=== PATIENT | female | born 1980 | race Caucasian/White ===

== ENCOUNTER 2022-03-30 10:00 | Outpatient (CLI) | payer OTHER, SELFPAY ==
[2022-03-31 16:08] LABS: H pylori Ag Stool* Negative (Negative)
== END 2022-03-30 10:01 | disposition home or self-care (01) ==
PROVIDERS: PCP Emergency Medicine; Visit Provider Emergency Medicine
DX: R10.9 Unspecified abdominal pain (principal)
CPT/HCPCS: 87338

== ENCOUNTER 2022-03-31 07:07 | Outpatient (CLI) | payer OTHER, SELFPAY ==
--- NOTE | 2022-03-31 07:15 | CRLHL7_ITS ---
For Patients: As a result of the Century Cures Act, medical imaging exams and procedure reports are released immediately into your electronic medical record. You may view this report before your referring provider. If you have questions, please contact your health care provider. INDICATION: POST PRANDIAL PAIN COMPARISON: none TECHNIQUE: Real time sharp scale imaging and color Doppler analysis was performed of the right upper quadrant. FINDINGS: The patient`s liver is of normal size and has uniform echogenicity. There is a normal appearance of the hepatic IVC and proximal abdominal aorta. There is no evidence of ascites. A large shadowing stone is present within the gallbladder lumen measuring 3.6 x 1.6 x 2.7 cm. The gallbladder wall measures 4 mm in thickness. The common bile duct is of normal size and measures 5.5 mm in diameter at the level of the jordin hepatis. The pancreas appears normal. There is no evidence of a stone or hydronephrosis within the right kidney. The right kidney measures 11.7 cm in length. IMPRESSION: Large gallstone in the gallbladder lumen measuring 3.6 cm with mild gallbladder wall thickening compatible with cholelithiasis. Surgical consultation should be considered. Dictated by Kevin Perez MD @ 03/31/2022 8:39:47 AM (Electronically Signed)
== END 2022-03-31 07:08 | disposition home or self-care (01) ==
PROVIDERS: PCP Emergency Medicine; Visit Provider Emergency Medicine
DX: R10.9 Unspecified abdominal pain (principal); K80.80 Other cholelithiasis without obstruction
CPT/HCPCS: 76705

== ENCOUNTER 2022-04-07 09:02 | Outpatient (CLI) | payer OTHER, SELFPAY ==
--- NOTE | 2022-04-07 09:15 | CRLHL7_ITS ---
For Patients: As a result of the Century Cures Act, medical imaging exams and procedure reports are released immediately into your electronic medical record. You may view this report before your referring provider. If you have questions, please contact your health care provider. BILATERAL MAMMOGRAM WITH COMPUTER-AIDED DETECTION AND TOMOSYNTHESIS TECHNIQUE: CC and MLO views were obtained. These mammographic images have been obtained using full-field digital technique. These mammographic images were interpreted with the benefit of computer-aided detection. Breast Tomosynthesis was used in this interpretation. COMPARISON FILM: 04/01/2021, 02/21/2017. FINDINGS: The breasts are heterogeneously dense, which may obscure small masses IMPRESSION: There is no radiographic evidence for malignancy. ASSESSMENT: BI-RADS Category 1: Negative RECOMMENDATION: Routine screening mammogram in 1 year. A lay language report of this examination will be provided to the patient. Kevin Perez M.D. Diagnostic Radiologist [email or web address] JALEESA/Dictated by: Kevin Perez MD @ 04/07/2022 11:06:00 AM (Electronically Signed)
== END 2022-04-07 09:03 | disposition home or self-care (01) ==
LOC: MAMMO 09:03
PROVIDERS: PCP Emergency Medicine; Visit Provider Physician Assistant
DX: Z12.31 Encounter for screening mammogram for malignant neoplasm of breast (principal); R92.2 Inconclusive mammogram
CPT/HCPCS: 77063; 77067

== ENCOUNTER 2022-04-07 10:50 | Outpatient (CLI) | payer OTHER, SELFPAY ==
[2022-04-07 14:05] LABS: Cholesterol* 181 mg/dL (90-199)
[2022-04-07 14:06] LABS: HDL Cholesterol* 45 mg/dL (>=50); LDL Cholesterol Calculated 107 mg/dL (<100); Triglycerides* 143 mg/dL (40-149)
== END 2022-04-07 10:51 | disposition home or self-care (01) ==
PROVIDERS: PCP Emergency Medicine; Visit Provider Physician Assistant
DX: Z01.419 Encounter for gynecological examination (general) (routine) without abnormal findings (principal); E66.9 Obesity, unspecified; K80.20 Calculus of gallbladder without cholecystitis without obstruction; Z11.3 Encounter for screening for infections with a predominantly sexual mode of transmission; Z13.6 Encounter for screening for cardiovascular disorders
CPT/HCPCS: 80061; 87624; 88175

== ENCOUNTER 2022-04-18 13:57 | Outpatient (CLI) | payer OTHER, SELFPAY ==
[2022-04-18 16:18] LABS: Albumin* 4.3 g/dL (3.3-5.0)
[2022-04-18 16:20] LABS: Total Protein* 7.3 g/dL (6.0-8.3)
[2022-04-18 16:21] LABS: Alanine Aminotransferase* 21 U/L (4-35); Alkaline Phosphatase* 72 U/L (40-150); Aspartate Amino Transferase* 24 U/L (12-35); Bilirubin Direct* 0.2 mg/dL (0.0-0.5); Bilirubin Total* 0.2 mg/dL (0.1-1.5); Lipase* 85 U/L (23-300)
== END 2022-04-18 13:58 | disposition home or self-care (01) ==
PROVIDERS: PCP Emergency Medicine; Visit Provider Surgery
DX: K80.20 Calculus of gallbladder without cholecystitis without obstruction (principal); K21.9 Gastro-esophageal reflux disease without esophagitis
CPT/HCPCS: 80076; 83690

== ENCOUNTER 2022-04-28 07:44 | Day surgery (SDC) | payer OTHER, SELFPAY ==
[2022-04-28] VITALS (12 sets, daily range): BP systolic 112–136; BP diastolic 75–88; PULSE 69–92; RESP 14–16; TEMP 36.2–36.8; O2SAT 95–97; BMI 33.4
[2022-04-28] MEDS: LACTATED RINGERS 1000 ML 1,000 ML 100 ML IV ×2 (08:10→10:24)
[2022-04-28] MEDS: SODIUM CHLORIDE 0.9 % (FLUSH) 10 ML SYRINGE IVF (08:10)
--- NOTE | 2022-04-28 08:56 | P.GSOP_ITS ---
Operative Note Date of procedure: 04/28/22 Type of Procedure: Laparoscopic cholecystectomy Procedure Description: After discussing the risks and benefits of the procedure, the patient signed informed consent.? The operative site was marked and the patient was brought to the operating room and placed on the operating table in supine position.? Care was taken to pad the patient's pressure points.?? The patient was then intubated by anesthesia.?? The operative site was then prepped and draped in the usual sterile fashion.? A time-out was then performed. Entrance to the abdomen was gained via a 5 mm Visiport in the left upper quadrant. The abdomen was insufflated and briefly surveyed for signs of injury. There was none. A 10 mm umbilical port was placed as well as 2 working ports along the right costal margin, all under direct vision. The patient was then p laced in reverse Trendelenburg position with the right side up. The gallbladder fundus was grasped and retracted cephalad. A small amount of dissection was needed to free omental adhesions from the gallbladder. The infundibulum was grasped. A combination of hook cautery and blunt dissection was used to carefully dissect out the cystic duct and artery until they could clearly be seen entering the gallbladder. There were several very small additional vessels which were clearly also going into the gallbladder. Because they were diminutive and again entering the gallbladder, I ligated these with clips. The gallbladder was further dissected off the cystic plate to achieve the critical view. Once this was achieved the cystic artery was clipped with 2 clips proximally and 1 clip distally. The cystic duct was just slightly too large for a clip and so it was transected at the gallbladder neck and ligated with Endoloops, and 0 Vicryl and an 0 PDS. This was done after gently milking a sma ll amount of sludge out of the duct. The gallbladder was then taken off of the liver bed and removed from the abdomen using an Endo-Catch bag. The gallbladder bed was surveyed for hemostasis which appeared adequate. A small amount of bile and stones which had spilled was removed and suctioned from the abdomen. The ports were then removed and the abdomen desufflated. The umbilical port site was closed with 0 Vicryl. The skin was closed with absorbable subcuticular suture. Sterile dressings were applied. Instrument sponge and needle counts were correct at the end of the case. The patient was then woken and transferred to the PACU in stable condition. ?? The patient tolerated the procedure well. Findings: Large gallstones in the gallbladder with some omental adhesions Anesthesia: GETA Surgeon: Deedee Hill MD Estimated blood loss (mL): 10 Condition: stable Disposition: PACU
--- NOTE | 2022-04-28 11:00 | W.ANESCHARGE ---
Anesthesia Charges Start Date/Time Anesthesia Start Date: 04/28/22 Anesthesia Start Time: 09:01 Stop Date/Time Anesthesia Stop Date: 04/28/22 Anesthesia Stop Time: 10:54 Summary Emergency: No
--- NOTE | 2022-04-28 11:06 | W.ANESCHARGE ---
Anesthesia Charges Start Date/Time Anesthesia Start Date: 04/28/22 Anesthesia Start Time: 09:01 Stop Date/Time Anesthesia Stop Date: 04/28/22 Anesthesia Stop Time: 10:54 Summary Emergency: No
== END 2022-04-28 12:45 | disposition home or self-care (01) ==
PROVIDERS: PCP Emergency Medicine; Visit Provider Surgery
PROC: 0FT44ZZ Resection of Gallbladder, Percutaneous Endoscopic Approach (ICD-10-PCS; CPT 47562; principal; 2022-04-28 09:00)
DX: K80.10 Calculus of gallbladder with chronic cholecystitis without obstruction (principal)
CPT/HCPCS: 47562; 00790; 88304; J0330; J1100; J2175; J2405; J2704; J3010; J7120

== ENCOUNTER 2023-04-11 14:44 | Outpatient (CLI) | payer OTHER, SELFPAY ==
--- NOTE | 2023-04-11 15:00 | CRLHL7_ITS ---
For Patients: As a result of the Cures Act, medical imaging exams and procedure reports are released immediately into your electronic medical record. You may view this report before your referring provider. If you have questions, please contact your health care provider. BILATERAL SCREENING MAMMOGRAM WITH COMPUTER-AIDED DETECTION AND TOMOSYNTHESIS TECHNIQUE: CC and MLO views were obtained. These mammographic images have been obtained using full-field digital technique. These mammographic images were interpreted with the benefit of computer-aided detection. Breast tomosynthesis was used in this interpretation. COMPARISON FILM: 04/07/22, 04/01/21. FINDINGS: The breasts are heterogeneously dense, which may obscure small masses. IMPRESSION: There is no radiographic evidence for malignancy. ASSESSMENT: BI-RADS Category 1: Negative RECOMMENDATION: Routine screening mammogram in 1 year. A lay language report of this examination will be provided to the patient. KALIA CANNON M.D. Diagnostic/Nuclear Medicine Radiologist [email or web address] GIULIANO:мария Transcribed: 04/12/2023, 6:[address]/Dictated by: Kaila Cannon MD @ 04/12/2023 8:47:00 AM (Electronically Signed)
== END 2023-04-11 14:45 | disposition home or self-care (01) ==
LOC: MAMMO 14:45
PROVIDERS: PCP Emergency Medicine; Visit Provider Physician Assistant
DX: Z12.31 Encounter for screening mammogram for malignant neoplasm of breast (principal); R92.2 Inconclusive mammogram
CPT/HCPCS: 77063; 77067

== ENCOUNTER 2024-04-16 14:56 | Outpatient (CLI) | payer OTHER, SELFPAY ==
--- NOTE | 2024-04-16 15:00 | CRLHL7_ITS ---
For Patients: As a result of the Century Cures Act, medical imaging exams and procedure reports are released immediately into your electronic medical record. You may view this report before your referring provider. If you have questions, please contact your health care provider. BILATERAL SCREENING MAMMOGRAM WITH COMPUTER-AIDED DETECTION AND TOMOSYNTHESIS TECHNIQUE: CC and MLO views were obtained. These mammographic images have been obtained using full-field digital technique. These mammographic images were interpreted with the benefit of computer-aided detection. Breast tomosynthesis was used in this interpretation. COMPARISON FILM: 04/11/23, 04/07/22, 04/01/21. FINDINGS: The breasts are heterogeneously dense, which may obscure small masses. IMPRESSION: There is no radiographic evidence for malignancy. ASSESSMENT: BI-RADS Category 2: Benign RECOMMENDATION: Routine screening mammogram in 1 year. A lay language report of this examination will be provided to the patient. KEVIN LUCERO M.D. Diagnostic Radiologist [email or web address] Transcribed: 2:[address]/Dictated by: Kevin Lucero MD @ 04/17/2024 12:06:00 PM (Electronically Signed)
== END 2024-04-16 14:57 | disposition home or self-care (01) ==
LOC: MAMMO 14:56
PROVIDERS: PCP Emergency Medicine; Visit Provider Physician Assistant
DX: Z12.31 Encounter for screening mammogram for malignant neoplasm of breast (principal); R92.2 Inconclusive mammogram
CPT/HCPCS: 77063; 77067

== ENCOUNTER 2025-07-01 11:26 | Outpatient (CLI) | payer OTHER, SELFPAY ==
--- NOTE | 2025-07-01 11:30 | CRLHL7_ITS ---
For Patients: As a result of the Century Cures Act, medical imaging exams and procedure reports are released immediately into your electronic medical record. You may view this report before your referring provider. If you have questions, please contact your health care provider. INDICATION: BILATERAL SCREENING MAMMOGRAM, ASYMPTOMATIC 44 Y/O FEMALE COMPARISON: 04/16/2024, 04/11/2023, 04/07/2022 TECHNIQUE: Digital mammogram in CC and MLO projections including computer-aided detection (CAD) and tomosynthesis. BREAST COMPOSITION: The breasts are heterogeneously dense, which may obscure small masses. FINDINGS: No suspicious findings. ASSESSMENT: BI-RADS 2 Benign RECOMMENDATION: Annual screening mammogram. A lay language report of this examination will be provided to the patient. Dictated by: Kevin Perez MD @ 07/01/2025 12:17:19 (Electronically Signed)
== END 2025-07-01 11:27 | disposition home or self-care (01) ==
LOC: MAMMO 11:27
PROVIDERS: PCP Emergency Medicine; Visit Provider Physician Assistant
DX: Z12.31 Encounter for screening mammogram for malignant neoplasm of breast (principal); R92.333 Mammographic heterogeneous density, bilateral breasts
CPT/HCPCS: 77063; 77067

== ENCOUNTER 2025-07-30 08:56 | Outpatient (CLI) | payer OTHER, SELFPAY | END 2025-07-30 08:57 | disposition home or self-care (01) | LOC: NFLDREF 08-04 01:58 | PROVIDERS: Visit Provider Physician Assistant | DX: Z13.9 Encounter for screening, unspecified (principal) | CPT/HCPCS: 80061; 82947; 84443 ==

== ENCOUNTER 2025-08-04 06:23 | Outpatient (CLI) | payer OTHER, SELFPAY ==
--- NOTE | 2025-08-04 07:45 | P.ANES_ITS ---
Anesthesia Charges Start Date/Time Anesthesia Start Date: 08/04/25 Anesthesia Start Time: 07:20 Stop Date/Time Anesthesia Stop Date: 08/04/25 Anesthesia Stop Time: 07:40 Coding CPT Codes CPT Codes: AIDEN LWR INTST NDSC NOS - [id number] ([id number]) P2 - PATIENT W/MILD SYST DISEASE, QK - CITY JAILER 2-4 CNCRNT ANES PROC
--- NOTE | 2025-08-04 07:45 | W.ANESCHARGE ---
Anesthesia Charges Start Date/Time Anesthesia Start Date: 08/04/25 Anesthesia Start Time: 07:20 Stop Date/Time Anesthesia Stop Date: 08/04/25 Anesthesia Stop Time: 07:40 Coding CPT Codes CPT Codes: AIDEN LWR INTST NDSC NOS - [id number] ([id number]) P2 - PATIENT W/MILD SYST DISEASE, QK - OIL PUMPER 2-4 CNCRNT ANES PROC
--- NOTE | 2025-08-04 09:30 | P.ANES_ITS ---
Anesthesia Charges Start Date/Time Anesthesia Start Date: 08/04/25 Anesthesia Start Time: 07:20 Stop Date/Time Anesthesia Stop Date: 08/04/25 Anesthesia Stop Time: 07:40 Coding CPT Codes CPT Codes: AIDEN LWR INTST NDSC NOS - [id number] ([id number]) QK - STAMPING BENCH DIE MAKER 2-4 CNCRNT AIDEN PROC, QX - RANCH HAND SVC W/ MD MED DIRECTION, P2 - PATIENT W/MILD SYST DISEASE
--- NOTE | 2025-08-04 09:30 | W.ANESCHARGE ---
Anesthesia Charges Start Date/Time Anesthesia Start Date: 08/04/25 Anesthesia Start Time: 07:20 Stop Date/Time Anesthesia Stop Date: 08/04/25 Anesthesia Stop Time: 07:40 Coding CPT Codes CPT Codes: AIDEN LWR INTST NDSC NOS - [id number] ([id number]) QK - INDUSTRIAL ENGINEERING TECHNOLOGIST 2-4 CNCRNT AIDEN PROC, QX - GRINDER OPERATOR TOOL SVC W/ MD MED DIRECTION, P2 - PATIENT W/MILD SYST DISEASE
== END 2025-08-04 06:24 | disposition home or self-care (01) ==
LOC: OP CLINIC 06:24
PROVIDERS: Visit Provider Internal Medicine
DX: Z12.11 Encounter for screening for malignant neoplasm of colon (principal); D12.5 Benign neoplasm of sigmoid colon
CPT/HCPCS: 00811; 00812; 45385; J2704